=== PATIENT | male | born 1950 | race Caucasian/White ===

== ENCOUNTER → 2019-07-23 12:36 | Outpatient (BNVA) | payer MEDICARE, OTHER, SELFPAY | PROVIDERS: PCP Internal Medicine; Referring Provider Internal Medicine; Visit Provider Psychiatry & Neurology Neurology | DX: G71.00 Muscular dystrophy, unspecified (principal); G62.9 Polyneuropathy, unspecified | CPT/HCPCS: 99205 ==

== ENCOUNTER → 2019-12-24 12:55 | Outpatient (BNVA) | payer OTHER, SELFPAY | PROVIDERS: PCP Internal Medicine; Referring Provider Internal Medicine; Visit Provider Psychiatry & Neurology Neurology | DX: G71.00 Muscular dystrophy, unspecified (principal); G62.9 Polyneuropathy, unspecified; M54.12 Radiculopathy, cervical region; R73.9 Hyperglycemia, unspecified; I10 Essential (primary) hypertension | CPT/HCPCS: 99214 ==

== ENCOUNTER → 2020-06-22 10:18 | Outpatient (BNVA) | payer MEDICARE, SELFPAY | PROVIDERS: PCP Internal Medicine; Referring Provider Internal Medicine; Visit Provider Psychiatry & Neurology Neurology | DX: G71.09 Other specified muscular dystrophies (principal); G62.9 Polyneuropathy, unspecified; I10 Essential (primary) hypertension | CPT/HCPCS: 99213; 99442 ==

== ENCOUNTER → 2023-01-24 13:41 | Outpatient (BNVA) | payer MEDICARE, SELFPAY | PROVIDERS: PCP Internal Medicine; Referring Provider Internal Medicine; Visit Provider Psychiatry & Neurology Neurology | DX: G71.00 Muscular dystrophy, unspecified (principal); G62.9 Polyneuropathy, unspecified | CPT/HCPCS: 99215 ==

== ENCOUNTER → 2023-03-30 10:22 | Outpatient (BNVA) | payer MEDICARE, SELFPAY | PROVIDERS: PCP Internal Medicine; Referring Provider Internal Medicine; Visit Provider Psychiatry & Neurology Neurology | DX: G71.00 Muscular dystrophy, unspecified (principal); G62.9 Polyneuropathy, unspecified; G95.9 Disease of spinal cord, unspecified | CPT/HCPCS: 99214 ==

== ENCOUNTER → 2023-11-08 06:31 | Outpatient (BNVA) | payer MEDICARE, SELFPAY | PROVIDERS: PCP Internal Medicine; Referring Provider Internal Medicine; Visit Provider Psychiatry & Neurology Neurology | DX: R73.9 Hyperglycemia, unspecified (principal); G71.00 Muscular dystrophy, unspecified; G62.9 Polyneuropathy, unspecified; G95.9 Disease of spinal cord, unspecified | CPT/HCPCS: 99214 ==